=== PATIENT | female | born 1980 | race Caucasian/White ===

== ENCOUNTER 2022-04-28 19:43 | Emergency (ER) | payer OTHER ==
[2022-04-28 19:49] VITALS: BP 134/79; PULSE 75; RESP 18; TEMP 97.5
[2022-04-28] MEDS ORDERED: LIDOCAINE 1% INJ 10MG/ML (30 ML VIAL-PF) SQ ONE (20:42)
[2022-04-28] MEDS ORDERED: SULFAMETHOX-TMP 800-160MG 1 EACH TAB PO STA (20:50)
[2022-04-28] MEDS ORDERED: cefTRIAXone 1,000 MG VIAL (IM USE) IM STA (20:51)
[2022-04-28] MEDS ORDERED: KETOROLAC 15 MG/ML 1 ML VIAL IM STA (20:51)
--- NOTE | 2022-04-28 21:31 | US ---
EXAMINATION TYPE: US abdomen limited DATE OF EXAM: 04/28/2022 COMPARISON: NONE CLINICAL HISTORY: indurated abscess lower abdomen. wound on lower abd. Check for abscess No obvious abnormalities visualized in area of wound IMPRESSION: No discrete solid or cystic mass identified. No fluid collection seen to suggest an absce ss.
--- NOTE | 2022-04-28 21:46 | ED ---
General Adult HPI - General Chief complaint: Skin/Abscess/Foreign Body Stated complaint: Wound on knee and abd Time Seen by Provider: 04/28/22 20:41 Source: patient Mode of arrival: ambulatory - History of Present Illness Initial comments: Patient is a 41-year-old female who presents to the emergency department with a chief complaint of possible abscess. Patient presents from [place]. States she has abscess on her right lower abdomen. States she noticed a week ago which was from an ingrown hair. States the abscess drained on its own a few days ago and she picked off the overlying skin. Does admit to history of abscess. She denies fever, chills, nausea, vomiting. Denies history of cellulitis and MRSA. - Related Data Previous Rx's Medication Instructions Recorded Cephalexin [Keflex] 500 mg PO Q6HR #20 cap 04/28/22 Ibuprofen [Motrin] 800 mg PO Q8H PRN #30 tab 04/28/22 Sulfamethox-Tmp 800-160Mg [Bactrim 1 tab PO Q12HR #10 tab 04/28/22 DS 800-160 mg] Allergies Allergy/AdvReac Type Severity Reaction Status Date / Time No Known Allergies Allergy Verified 04/28/22 19:49 Review of Systems ROS Statement: Those systems with pertinent positive or pertinent negative responses have been documented in the HPI. ROS Other: All systems not noted in ROS Statement are negative. Past Medical History Past Medical History: Asthma History of Any Multi-Drug Resistant Organisms: None Reported Past Surgical History: Adenoidectomy, Section, Tonsillectomy Additional Past Surgical History / Comment(s): carpal tunnel, cyst removal Past Psychological History: No Psychological Hx Reported Smoking Status: Current every day smoker Past Alcohol Use History: Abuse, Occasional Past Drug Use History: Methamphetamine General Exam General appearance: alert, in no apparent distress Respiratory exam: Present: normal lung sounds bilaterally. Absent: respiratory distress, wheezes, rales, rhonchi, stridor Cardiovascular Exam: Present: regular rate, normal rhythm, normal heart sounds. Absent: systolic murmur, diastolic murmur, rubs, gallop, clicks GI/Abdominal exam: Present: soft, normal bowel sounds, other (wound in right lower abdomen approx 3 by 2 cm. No fluctuance. Ulceration in center and indurated edges. No surrounding cellulitis). Absent: distended, tenderness, gua rding, rebound, rigid Neurological exam: Present: alert, oriented X3, CN II-XII intact Psychiatric exam: Present: normal affect, normal mood Skin exam: Present: warm, dry, intact, normal color, other (several scabs over the abdomen. scab over right knee without surrounding cellulitis). Absent: rash Course Vital Signs 04/28/22 19:45 Temperature 97.5 F L Pulse Rate 75 Respiratory 18 Rate Blood Pressure 134/79 O2 Sat by Pulse 97 Oximetry Medical Decision Making - Medical Decision Making This is a 41-year-old female presenting with possible abscess.There is a wound in the right lower abdomen approximately 3 by 2 cm. No fluctuance. Ulceration in center and indurated edges. No surrounding cellulitis. There are several scabs over the lower abdomen. There is also a scab over the right knee without surr ounding cellulitis. Patient does not know how she got the scabs. Ultrasound of this region was obtained which does not show any discrete solid or cystic mass. No fluid collection seen to suggest an abscess. Based on history of abscess and physical exam patient was treated with Keflex and Bactrim. Also given Toradol which helped her pain. Patient looks well, no fever, no systemic symptoms-she will be discharged with Keflex, Bactrim, and Motrin. Return parameters discussed. Dr. Helm is my attending. Disposition Clinical Impression: Abscess Disposition: HOME SELF-CARE Condition: Good Instructions (If sedation given, give patient instructions): Abscess (ED) Additional Instructions: Take medication as directed. Follow-up with primary care provider in one to 2 days. Return to the emergency department if you experience new, concerning, or worsening symptoms including but not limited to, increased redness, swelling, or pain. Prescriptions: Sulfamethox-Tmp 800-160Mg [Bactrim DS 800-160 mg] 1 tab PO Q12HR #10 tab Cephalexin [Keflex] 500 mg PO Q6HR #20 cap Ibuprofen [Motrin] 800 mg PO Q8H PRN #30 tab PRN Reason: Pain Is patient prescribed a controlled substance at d/c from ED?: No Referrals: Nonstaff,Physician [Primary Care Provider] - 1-2 days Time of Disposition: 21:46
== END 2022-04-28 22:29 | disposition home or self-care (01) ==
LOC: EC 19:43
DX: L02.91 Cutaneous abscess, unspecified (principal); J45.909 Unspecified asthma, uncomplicated; F17.200 Nicotine dependence, unspecified, uncomplicated; Z79.899 Other long term (current) drug therapy; X58.XXXA Exposure to other specified factors, initial encounter
CPT/HCPCS: 99283 ×2; 96374 ×2; 96375 ×2; 76705; J0696; J1885